=== PATIENT | male | born 1985 | race Two or more races ===

== ENCOUNTER 2023-09-17 20:51 | Emergency (ER) | payer OTHER ==
[~2023-09-17] VITALS: Ht 162.6 cm; Wt 74.8 kg
[2023-09-17] MEDS ORDERED: ACETAMINOPHEN 500 MG GEL..CAP PO ONE (23:45)
[2023-09-17] MEDS ORDERED: CEFTRIAXONE SODIUM 1,000 MG VIAL IV ONE (23:45)
[2023-09-17] MEDS ORDERED: TETANUS & DIPHTHERIA TOX,ADULT 0.5 ML VIAL IM ONE (23:45)
[2023-09-18] MEDS ORDERED: CEPHALEXIN500 MG PO (02:13)
[2023-09-18] MEDS ORDERED: KETO10TA2 PO (02:13)
== END 2023-09-18 02:17 ==
LOC: ER 20:51
DX: S61.411A Laceration without foreign body of right hand, initial encounter (principal); W45.8XXA Other foreign body or object entering through skin, initial encounter; Y93.89 Activity, other specified; Y92.89 Other specified places as the place of occurrence of the external cause; Y99.9 Unspecified external cause status; Z88.8 Allergy status to other drugs, medicaments and biological substances